=== PATIENT | male | born 1990 | race Caucasian/White ===

== ENCOUNTER 2021-10-22 17:19 | Emergency (ER) | payer MEDICAID ==
[~2021-10-22] VITALS: Ht 198.1 cm; Wt 147.7 kg
[~2021-10-22 17:19] MED LIST: HYDR-4383 PO; IBUP-1985 PO
[2021-10-22 17:22] VITALS: BP 195/99
== END 2021-10-22 18:39 | disposition left against medical advice (07) ==
LOC: ER 17:20
DX: M79.672 Pain in left foot (principal); Z90.89 Acquired absence of other organs; Z98.890 Other specified postprocedural states; Z79.899 Other long term (current) drug therapy
CPT/HCPCS: 99283

== ENCOUNTER 2023-10-15 12:20 | Emergency (ER) | payer MEDICAID ==
[~2023-10-15] VITALS: Ht 195.6 cm; Wt 144.7 kg
[2023-10-15] MEDS: orphenadrine citrate 60mg/2ml inj. IM ONE (13:52)
[2023-10-15] MEDS: ketorolac trometh. 30mg/ml inj. IM ONE (13:58)
[2023-10-15] MEDS: HYDROcodone/acetaminophen 5mg/325mg tablet PO ONE (14:01)
[2023-10-15] MEDS ORDERED: NAPR-56 PO (14:12)
[2023-10-15] MEDS ORDERED: CYCL-394 PO (14:12)
[2023-10-15] MEDS ORDERED: LIDO700A47 TOP (14:12)
[2023-10-15] MEDS ORDERED: HYDR-3965 PO (14:14)
[2023-10-15 14:35] VITALS: BP 129/82; PULSE 82; RESP 18; TEMP 98; O2SAT 96
== END 2023-10-15 14:36 | disposition home or self-care (01) ==
LOC: ER 12:21
DX: M54.50 Low back pain, unspecified (principal); Z88.5 Allergy status to narcotic agent; Z79.899 Other long term (current) drug therapy; Z98.890 Other specified postprocedural states
CPT/HCPCS: 96372; 99284; J1885; J2360

== ENCOUNTER 2023-10-26 09:45 | Outpatient (CLI) | payer MEDICAID ==
[~2023-10-26 09:45] MED LIST changes: +CYCL-394 PO; +LIDO700A47 TOP; +NAPR-56 PO
== END 2023-10-26 23:59 | disposition home or self-care (01) ==
LOC: RAD 09:45
DX: M19.041 Primary osteoarthritis, right hand (principal); M19.042 Primary osteoarthritis, left hand; M25.475 Effusion, left foot; M25.474 Effusion, right foot; R76.8 Other specified abnormal immunological findings in serum; R63.4 Abnormal weight loss
CPT/HCPCS: 71046; 73130; 73630

== ENCOUNTER 2023-10-28 12:47 | Emergency (ER) | payer MEDICAID ==
[~2023-10-28] VITALS: Ht 195.6 cm; Wt 149.6 kg
[~2023-10-28 12:47] MED LIST changes: -CYCL-394 PO
[2023-10-28 13:00] VITALS: BP 145/91; PULSE 86; RESP 16; TEMP 98; O2SAT 96
[2023-10-28] MEDS ORDERED: PRED20TA PO (14:25)
[2023-10-28] MEDS: dexamethasone sod phosphate 10mg/ml inj IM STA (14:52)
== END 2023-10-28 14:56 | disposition home or self-care (01) ==
LOC: ER 12:48
DX: M54.17 Radiculopathy, lumbosacral region (principal); Z90.49 Acquired absence of other specified parts of digestive tract; Z88.8 Allergy status to other drugs, medicaments and biological substances
CPT/HCPCS: 96372; 99283; J1100

== ENCOUNTER 2024-02-14 12:13 | Emergency (ER) | payer MEDICAID ==
[~2024-02-14] VITALS: Ht 195.6 cm; Wt 160.0 kg
[~2024-02-14 12:13] MED LIST changes: -NAPR-56 PO
[2024-02-14 12:21] VITALS: TEMP 98.9
[2024-02-14 14:52] LABS: BASOPHILS % (AUTO) 0.3 % (0-1); EOSINOPHILS # (AUTO) 0.1 X10'3 (0-0.9); EOSINOPHILS % (AUTO) 1.2 % (0-6); HEMATOCRIT 44.5 % (42.0-52.0); HEMOGLOBIN 15.1 g/dl (14.0-17.9); LYMPHOCYTES # (AUTO) 1.1 X10'3 (1.1-4.8); LYMPHOCYTES % (AUTO) 10.2 % (21-51); MEAN CORPUSCULAR HEMOGLOBIN 31.4 PG (27.0-31.0); MEAN CORPUSCULAR HGB CONC 33.9 g/dL (33.0-36.5); MEAN CORPUSCULAR VOLUME 92.6 FL (78-98); MEAN PLATELET VOLUME 7.6 FL (7.4-10.4); MONOCYTES # (AUTO) 0.7 X10'3 (0-0.9); MONOCYTES % (AUTO) 6.8 % (2-12); NEUTROPHILS # (AUTO) 8.8 X10'3 (1.8-7.7); NEUTROPHILS % (AUTO) 81.5 % (42-75); PLATELET COUNT 294 X10'3 (140-440); RED BLOOD COUNT 4.81 X10'6 (4.70-6.10); WHITE BLOOD COUNT 10.7 X10'3 (4.5-11.0)
[2024-02-14 15:06] LABS: ALANINE AMINOTRANSFERASE 37 U/L (12-78); ALBUMIN 3.9 G/DL (3.4-5.0); ALBUMIN/GLOBULIN RATIO 1.1 (1.1-1.5); ALKALINE PHOSPHATASE 93 IU/L (46-116); ANION GAP 9 (8-16); ASPARTATE AMINO TRANSFERASE 28 U/L (10-37); BILIRUBIN,TOTAL 0.5 MG/DL (0.1-1.0); BLOOD UREA NITROGEN 17 MG/DL (7-18); BUN/CREATININE RATIO 21.8 (10.0-20.0); CALCIUM 9.2 MG/DL (8.5-10.1); CHLORIDE 102 MMOL/L (99-107); CREATININE 0.78 MG/DL (0.60-1.10); GLUCOSE 87 MG/DL (70-104); POTASSIUM 4.1 MMOL/L (3.5-5.1); SODIUM 138 MMOL/L (135-145); TOTAL PROTEIN 7.5 G/DL (6.4-8.2); eCRCL 167 ML/MIN; eGFR > 90 ML/MIN
[2024-02-14] MEDS ORDERED: DEXAMETHASONE 6 MG TABLET PO SCH (15:40)
[2024-02-14] MEDS ORDERED: SULF1TAB49 PO (15:47)
[2024-02-14] MEDS ORDERED: CEPH-585 PO (15:47)
[2024-02-14] MEDS: sulfamethoxazole/trimethoprim DS (800/160mg) tablet PO ONE (16:09)
[2024-02-14] MEDS: cephalexin 250mg capsule PO ONE (16:09)
[2024-02-14] MEDS: DEXAMETHASONE 6 MG TABLET PO ONE (16:09)
[2024-02-14] MEDS: diphenhydrAMINE 25mg capsule PO ONE (16:09)
[2024-02-14 16:12] VITALS: BP 121/86; PULSE 110; RESP 16; O2SAT 100
== END 2024-02-14 16:14 | disposition home or self-care (01) ==
LOC: ER 12:13
DX: R60.0 Localized edema (principal); R21 Rash and other nonspecific skin eruption; L50.9 Urticaria, unspecified; M79.662 Pain in left lower leg; Z88.5 Allergy status to narcotic agent; Z79.899 Other long term (current) drug therapy; Z98.890 Other specified postprocedural states
CPT/HCPCS: 36415; 80053; 85025; 93971; 99284; Q0163; J8540